=== PATIENT | female | born 1990 | race Caucasian/White ===

== ENCOUNTER 2024-12-20 09:45 | Outpatient (CLI) | payer OTHER, SELFPAY ==
--- NOTE | 2024-12-20 | ECHO_ITS ---
Patient Info Name: Carmella Veloz Age: 34 years : 1990 Gender: Female Ht: 64 in Wt: 140 lbs BSA: 1.70 m2 HR: 78 bpm BP: 125 / 80 mmHg Technical Quality: Good Exam Date: 12/20/2024 10:21 AM Patient Status: O Admit Date: 12/20/2024 Exam Type: CA echo doppler color flow Complete two-dimensional, color flow and Doppler transthoracic echocardiogram is performed. Certified Veterinary Technician: Starr Gaytan Summary 1. Complete two-dimensional, color flow and Doppler transthoracic echocardiogram is performed. 2. There is normal biventricular size and systolic function. 3. There is normal left ventricular diastolic function. 4. There are no valvular abnormalities. Left Ventricle The left ventricle is normal in size and systolic function. The left ventricular ejection fraction is visually estimated to be 60-65%. There is normal diastolic function. Right Ventricle The right ventricle is normal in size and systolic function. Left Atria The left atrium is normal size. Right Atria The right atrium is normal size. Atrial Septum The atrial septum is normal. Aortic Valve The aortic valve is trileaflet and opens well. There is no aortic regurgitation. Pulmonic Valve The pulmonic valve is normal. There is trace pulmonic valve regurgitation. Mitral Valve The mitral valve is normal. There is no mitral regurgitation. Tricuspid Valve The tricuspid valve is normal. There is trace tricuspid regurgitation. Pericardium/Pleural Pericardium is normal in appearance with no evidence for significant pericardial effusion. Inferior Vena Cava Normal inferior vena cava with <50% collapse upon inspiration consistent with elevated right atrial pressure, 8 mmHg. Aorta The aortic root at the level of the sinus of Valsalva measures 2.4 cm in diameter. Left Ventricular Outflow Tract Name Value Normal LVOT 2D LVOT Diameter 1.7 cm LVOT Doppler LVOT Peak Velocity 112 cm/s LVOT Peak Gradient 5 mmHg LVOT Mean Gradient 3 mmHg LVOT VTI 25 cm LVOT Stroke Volume 59 ml LVOT CO 4.6 l/min LVOT CI 2.7 l/min/m2 Pulmonic Valve Name Value Normal RVOT Doppler RVOT Peak Velocity 74 cm/s RVOT Peak Gradient 2 mmHg PV Doppler PV Peak Velocity 98 cm/s PV Peak Gradient 4 mmHg Mitral Valve Name Value Normal MV Diastolic Function MV E Peak Velocity 100 cm/s MV A Peak Velocity 62 cm/s MV E/A 1.6 MV Decel Time (PW) 185 ms MV Annular TDI MV E/e' (Septal) 8.3 MV E/e' (Lateral) 6.0 MV E/e' (Average) 7.1 Tricuspid Valve Name Value Normal Estimated PAP/RSVP RA Pressure 8 mmHg <=5 Aortic Valve Name Value Normal AV Doppler AV Peak Velocity 140 cm/s AV Peak Gradient 8 mmHg AV Area (Cont Eq Emigdio) 1.9 cm2 AV DI (Emigdio) 0.80 AV Regurgitation 2D LVOT Area 2.4 cm2 Ventricles Name Value Normal LV Dimensions 2D/MM IVS Diastolic Thickness (2D) 0.6 cm 0.6-1.0 LVID Diastole (2D) 3.7 cm 3.8-5.2 LVIW Diastolic Thickness (2D) 1.0 cm 0.6-0.9 LVID Systole (2D) 2.6 cm 2.2-3.5 LVOT Diameter 1.7 cm LV Mass (2D Cubed) 88.79 g 67.00-162.00 LV Mass Index (2D Cubed) 52 g/m2 43-95 Relative Wall Thickness (2D) 0.57 <=0.42 LV Fractional Shortening/Ejection Fraction 2D/MM LV Fractional Shortening (2D) 29 % 27-45 LV EF (2D Teichradhaz) 57 % LV Diastolic Volume (4C MOD) 73 ml LV EF (4C MOD) 58 % LV Diastolic Volume (2C MOD) 77 ml LV EF (2C MOD) 60 % LV Diastolic Volume (BP MOD) 76 ml 46-106 LV Diastolic Volume Index (BP MOD) 45 ml/m2 29-61 LV Systolic Volume (BP MOD) 31 ml 14-42 LV Systolic Volume Index (BP MOD) 18 ml/m2 8-24 LV EF (BP MOD) 59 % 54-74 LV Diastolic Length (4C) 7.9 cm LV Systolic Length (4C) 6.9 cm LV Stroke Volume (4C MOD) 42 ml Atria Name Value Normal LA Dimensions LA Volume (4C A-L) 24 ml LA Volume (BP A-L) 29 ml RA Dimensions RA Systolic Major [place] Length (4C) 4.1 cm 2.2-2.8 RA Area (4C) 8.8 cm2 <=18.0 Report Signatures
--- OUTSIDE RECORDS SUMMARY | 2024-12-20 10:37 | XMS_ITS | Clinical Summary ---
Author Organization [facility] [facility] Address [address] [place] [address] Care Team Providers Care Truck Driver Teamster Name Role Phone Unavailable Primary Care Provider Unavailabl e Source Comments [facility],non-owned Affiliates and Associated Physician Practices is amultiple site organization consisting of ambulatory clinics and hospital sitesin [place] and [place]. This disclosure is being madepursuant to the Care Everywhere program and may not contain all information available regarding this patient. Last updated 17.[facility] Allergies Active Allergy Reactions Criticality Noted Date Comments Promethazine Rash Medium 02/20/2016 Medications * Be aware that medications may not be up to date on this document. Alwaysverify current medications with the patient. sertraline (ZOLOFT) 50 MG tablet Take 50 mg by mouth once daily Active Norgestim-Eth Estrad Triphasic (ORTHO TRI-CYCLEN LO PO) Active Family History Medical History Relation Name Comments Negative Family History Father Negative Family History Mother Relation Name Status Comments Father Alive Mother Alive Social History Tobacco Use Types Packs/Day Years Used Date Smoking Tobacco: Never Tobacco Cessation:Counseling Given: No Alcohol Use Standard Drinks/Week Comments No 0 (1 standard drink = 0.6 oz pur e alcohol) Comments No Sex and Gender Information Value Date Recorded Sex Assigned at Not on file 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 Gender Identity Not on file Sexual Orientation Not on file Last Filed Vital Signs Vital Sign Reading Time Taken Comments Blood Pressure 122/77 02/20/2016 5:39 PM CIGARETTE CATCHER Pulse 88 02/20/2016 5:39 PM CIGARETTE CATCHER Temperature 36.9 C (98.4 F) 02/20/2016 5:39 PM CIGARETTE CATCHER Respiratory Rate 20 02/20/2016 5:39 PM CIGARETTE CATCHER Oxygen Saturation 97% 02/20/2016 5:39 PM CIGARETTE CATCHER Inhaled Oxygen Concentration - - Weight 54.4 kg (120 lb) 02/20/2016 5:39 PM CIGARETTE CATCHER Height 162.6 cm (5' 4) 02/20/2016 5:39 PM CIGARETTE CATCHER Body Mass Index 20.6 02/20/2016 5:39 PM CIGARETTE CATCHER Plan of Treatment Health Maintenance Due Date Last Done Comments HIV SCREENING 08/11/2006 HEPATITIS C SCREENING 08/07/2009 DTAP/TDAP/TD VACCINES (1 - Tdap) 08/11/2010 HEPATITIS B VACCINE (1 of 3 - 19+ 3-dose series) 08/11/2010 HPV VACCINE (1 - 3-dose SCDM series) 08/11/2018 DEPRESSION SCREENING 02/29/2024 COVID-19 VACCINE (1 - 2023-2 5 season) 2024 INFLUENZA VACCINE (#1) 2024 ZOSTER VACCINE (1 of 2) 08/11/2041 HIB VACCINE Aged Out No longer eligi ble based on patient's age to complete this topic MENINGOCOCCAL (Group B) VACC INE SHARED DECISION-MAKING Aged Out No longer eligibl e based on patient's age to complete this topic MENINGOCOCCAL GROUPS A/C/Y/W VACCINE Aged Out No longer eligible b ased on patient's age to complete this topic PNEUMOCOCCAL VACCINE Aged Out No long er eligible based on patient's age to complete this topic Insurance MEDICAID - [place] Member Subscriber Plan / Payer (Ef fective 2017-Present) Name:PablitoCarmella Relation to Subscriber:Self Name:CARMELLA MALDONADO Payer ID:[id number] (NAIC) Type:PPO Address: [place] [phone]
--- OUTSIDE RECORDS SUMMARY | 2024-12-20 10:37 | XMS_ITS | Clinical Summary ---
Author Organization [facility] Address [address] [place] [address] Care Team Providers Care Gold Assayer Name Role Phone Maria E Younger MD Primary Care Provider [phone] Allergies No known active allergies Medications No known medications Active Problems No known active problems Medical History Medical History Date Comments Anxiety Social History Tobacco Use Types Packs/Day Years Used Date Smoking Tobacco: Never AUDIT-C Answer Date Recorded Q1: How often do you have a drink containing alc ohol? 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 Gender Identity Not on file Sexual Orientation Not on file Obstetrics History Last Filed Vital Signs Vital Sign Reading Time Taken Comments Blood Pressure 127/84 08/10/2024 2:07 PM CDT Pulse 83 08/10/2024 2:07 PM CDT Temperature 37.1 C (98.8 F) 07/18/2024 2:36 PM CDT Respiratory Rate 20 07/18/2024 2:36 PM CDT Oxygen Saturation 99% 07/18/2024 2:36 PM CDT Inhaled Oxygen Concentration - - Weight 63.5 kg (140 lb) 08/10/2024 2:07 PM CDT Height 162.6 cm (5' 4) 08/10/2024 2:07 PM CDT Body Mass Index 24.03 08/10/2024 2:07 PM CDT Plan of Treatment Health Maintenance Due Date Last Done Comments Depression Screening 1990 Hepatitis C Screening 1990 Regular Well Visit/Exam 18-64 08/11/2009 DTaP/Tdap/Td Vaccine (6 - Tdap) 10/26/2015 10/25/2005, 10/03/1993, 07/16/1992, Additional history exists HPV Vaccines (1 - 3-dose SCDM series) 08/11/2018 Cervical Cancer Screening 04/30/2022 04/30/2021 Influenza Vaccine (#1) 2024 , 12/15/2015, 11/29/2014 Hepatitis B Screening Completed 09/11/2014 , 05/28/2002, 12/12/2001, Additional history exists Varicella Vaccines Completed 09/11/2014, 08/14/2014 Pneumococcal vaccine <65 Aged Out No longer eligible based on patient's age to complete this topic Insurance [employer] [facility] [employer] Address: [facility] [id number] [place] [id number] [facility] [employer] Address: [facility] [id number] [place] [id number] Care Teams Gold Assayer Relationship Specialty Start Date End Date Maria E Younger MD PCP - General Nurse Practitioner 10/17/20
== END 2024-12-20 09:46 | disposition home or self-care (01) ==
LOC: ANHCARD 09:52
PROVIDERS: PCP Family Medicine
DX: R00.2 Palpitations (principal)
CPT/HCPCS: 93306